=== PATIENT | female | born 1960 | race Caucasian/White ===

== ENCOUNTER 2018-10-13 07:19 | Emergency (ER) | payer BC, SELFPAY ==
[2018-10-13] MEDS ORDERED: KETOROLAC 30 MG/ML INJ ONE (08:12)
[2018-10-13] MEDS ORDERED: ACETAMINOPHEN 500 MG TAB ONE (09:05)
--- NOTE | 2018-10-13 09:07 | RAD REPORT ---
EXAM DESCRIPTION: RAD - Shoulder Right 2 View - 10/13/2018 8:54 am CLINICAL HISTORY: PAIN COMPARISON: No comparisons FINDINGS: Degenerative changes are present involving the AC joint with small osteophytes. Calcificat ion is seen the distal supraspinatus tendon compatible with calcific tendinitis. No fracture or dislo cation. IMPRESSION: Calcific tendinitis.
--- NOTE | 2018-10-13 09:17 | ER ---
Nurse's Notes [facility] Name: Varsha Mayberry Age: 57 yrs Sex: Female : 1960 Arrival Date: 10/13/2018 Time: 07:20 Bed 19 Private MD: Diagnosis: Calcific tendinitis of right shoulder Presentation: 10/13 07:25 Presenting complaint: Patient states: c/o right shoulder pain radiating down to right aa5 elbow. Pt denies know injury. Report pain began on Friday. 07:25 Transition of care: patient was not received from another setting of care. Onset of aa5 symptoms was September 2018. Risk Assessment: Do you want to hurt yourself or someone else? Patient reports no desire to harm self or others. Initial Sepsis Screen: Does the patient meet any 2 criteria? No. Patient's initial sepsis screen is negative. Does the patient have a suspected source of infection? No. Patient's initial sepsis screen is negative. Care prior to arrival: None. 07:25 Method Of Arrival: Ambulatory aa5 07:25 Acuity: RUDDY 3 aa5 Triage Assessment: 07:40 General: Appears in no apparent distress. Behavior is calm, cooperative, appropriate hj for age. Pain: Complains of pain in arm, shoulder. Historical: - Allergies: 07:25 No Known Allergies; aa5 - PMHx: 07:25 None; aa5 - PSHx: 07:25 None; aa5 - Immunization history:: Flu vaccine is not up to date. - Social history:: Smoking status: Patient/guardian denies using tobacco. - Ebola Screening: : No symptoms or risks identified at this time. Screenin:40 Abuse screen: Denies threats or abuse. Denies injuries from another. Nutritional hj screening: No deficits noted. Tuberculosis screening: No symptoms or risk factors identified. Fall Risk None identified. Assessment: 07:41 General: Appears in no apparent distress. uncomfortable, Behavior is calm, cooperative, hj appropriate for age. Pain: Complains of pain in R shoulder, R arm. Neuro: Level of Consciousness is awake, alert, obeys commands, Oriented to person, place, time, situation, Appropriate for age. Cardiovascular: Capillary refill < 3 seconds Patient's skin is warm and dry. Respiratory: Airway is patent Respiratory effort is even, unlabored, Respiratory pattern is regular, symmetrical. GI: No signs and/or symptoms were reported involving the gastrointestinal system. : No signs and/or symptoms were reported regarding the genitourinary system. EENT: No signs and/or symptoms were reported regarding the EENT system. Derm: No signs and/or symptoms reported regarding the dermatologic system. Musculoskeletal: Reports pain in R shoulder, R arm. 09:02 Reassessment: Patient appears in no apparent distress at this time. Patient and/or hb family updated on plan of care and expected duration. Pain level reassessed. Patient is alert, oriented x 3, equal unlabored respirations, skin warm/dry/pink. Vital Signs: 07:27 BP 126 / 70; Pulse 69; Resp 16 S; Temp 98.0(TE); Pulse Ox 95% on R/A; Weight 77.11 kg aa5 (R); Height 5 ft. 10 in. (177.80 cm) (R); Pain 9/10; 09:00 BP 116 / 68; Pulse 66; Resp 16; Pulse Ox 100% on R/A; hb 07:27 Body Mass Index 24.39 (77.11 kg, 177.80 cm) aa5 ED Course: 07:20 Patient arrived in ED. as 07:25 José Gonzalez, EDIN is Primary Nurse. hj 07:25 Arm band placed on Patient placed in an exam room, on a stretcher. aa5 07:31 Triage completed. aa5 07:36 Shaniqua Aguilar F[facility]C is [facility]. snw 07:36 Antonio Frazier MD is Attending Physician. snw 07:41 Patient has correct armband on for positive identification. Bed in low position. Call hj light in reach. Side rails up X 1. 08:54 Shoulder Right (2 View) XRAY In Process Unspecified. EDMS 09:17 Contreras Louie MD is Referral Physician. snw 09:30 No provider procedures requiring assistance completed. Patient did not have IV access hb during this emergency room visit. Administered Medications: 07:59 Drug: TORadol 60 mg Route: IM; Site: left deltoid; hj 08:56 Follow up: Response: No adverse reaction; Pain is decreased hj Outcome: 09:17 Discharge ordered by . snw 09:30 Discharged to home ambulatory. hb 09:30 Condition: stable 09:30 Discharge instructions given to patient, Instructed on discharge instructions, follow up and referral plans. medication usage, Demonstrated understanding of instructions, follow-up care, medications, Prescriptions given X 1. 09:31 Patient left the ED. hb Signatures: Dispatcher [employer] EDMS Shaniqua Aguilar, AURY-C [employer] DISTRICT SUPERVISOR-Kristalw Raya Dominguez Audri, RN RN aa5 José Gonzalez RN RN Nazia Miller RN RN hb
--- NOTE | 2018-10-13 09:18 | EDPHYS ---
Physician Documentation [facility] Name: Varsha Mayberry Age: 57 yrs Sex: Female : 1960 Arrival Date: 10/13/2018 Time: 07:20 Bed 19 Private MD: ED Physician Antonio Frazier HPI: 10/13 08:16 This 57 yrs old Female presents to ER via Ambulatory with complaints of Arm snw Pain, Shoulder Pain. 08:16 The patient or guardian complains of decreased range of motion, pain, that is acute. snw The complaints affect the posterior aspect of right shoulder. Context: The problem was sustained at an unknown location, resulted from repetitive motion work, lifting grandchild. Onset: The symptoms/episode began/occurred suddenly, 3 day(s) ago, and became persistent. Associated signs and symptoms: Pertinent positives: decreased range of motion, pain, of the right shoulder. Severity of symptoms: At their worst the symptoms were moderate, severe, 3 day(s) ago. The patient has experienced a previous episode, many years ago. The patient has not recently seen a physician. Historical: - Allergies: 07:25 No Known Allergies; aa5 - PMHx: 07:25 None; aa5 - PSHx: 07:25 None; aa5 - Immunization history:: Flu vaccine is not up to date. - Social history:: Smoking status: Patient/guardian denies using tobacco. - Ebola Screening: : No symptoms or risks identified at this time. ROS: 08:16 Constitutional: Negative for fever, chills, and weight loss, Eyes: Negative for injury, snw pain, redness, and discharge, ENT: Negative for injury, pain, and discharge, Neck: Negative for injury, pain, and swelling, Cardiovascular: Negative for chest pain, palpitations, and edema, Respiratory: Negative for shortness of breath, cough, wheezing, and pleuritic chest pain, Abdomen/GI: Negative for abdominal pain, nausea, vomiting, diarrhea, and constipation, Back: Negative for injury and pain, : Negative for injury, bleeding, discharge, and swelling, Skin: Negative for injury, rash, and discoloration, Neuro: Negative for headache, weakness, numbness, tingling, and seizure, Psych: Negative for depression, anxiety, suicide ideation, homicidal ideation, and hallucinations. 08:16 MS/extremity: Positive for injury or acute deformity, decreased range of motion, pain, tenderness, of the right shoulder. Exam: 08:07 Constitutional: This is a well developed, well nourished patient who is awake, alert, snw and in no acute distress. Head/Face: Normocephalic, atraumatic. Eyes: Pupils equal round and reactive to light, extra-ocular motions intact. Lids and lashes normal. Conjunctiva and sclera are non-icteric and not injected. Cornea within normal limits. Periorbital areas with no swelling, redness, or edema. ENT: Nares patent. No nasal discharge, no septal abnormalities noted. Tympanic membranes are normal and external auditory canals are clear. Oropharynx with no redness, swelling, or masses, exudates, or evidence of obstruction, uvula midline. Mucous membranes moist. Neck: Trachea midline, no thyromegaly or masses palpated, and no cervical lymphadenopathy. Supple, full range of motion without nuchal rigidity, or vertebral point tenderness. No Meningismus. Chest/axilla: Normal chest wall appearance and motion. Nontender with no deformity. No lesions are appreciated. Cardiovascular: Regular rate and rhythm with a normal S1 and S2. No gallops, murmurs, or rubs. Normal PMI, no JVD. No pulse deficits. Respiratory: Lungs have equal breath sounds bilaterally, clear to auscultation and percussion. No rales, rhonchi or wheezes noted. No increased work of breathing, no retractions or nasal flaring. Abdomen/GI: Soft, non-tender, with normal bowel sounds. No distension or tympany. No guarding or rebound. No evidence of tenderness throughout. Back: No spinal tenderness. No costovertebral tenderness. Full range of motion. Skin: Warm, dry with normal turgor. Normal color with no rashes, no lesions, and no evidence of cellulitis. Neuro: Awake and alert, GCS 15, oriented to person, place, time, and situation. Cranial nerves II-XII grossly intact. Motor strength 5/5 in all extremities. Sensory grossly intact. Cerebellar exam normal. Normal gait. Psych: Awake, alert, with orientation to person, place and time. Behavior, mood, and affect are within normal limits. 08:07 Musculoskeletal/extremity: Extremities: grossly normal except: noted in the right arm: decreased ROM, tenderness, ROM: limited active range of motion due to pain, in the right arm, Circulation is intact in all extremities. spasm like pain Joints: the right shoulder displays limited range of motion, pain at rest, painful range of motion. Vital Signs: 07:27 BP 126 / 70; Pulse 69; Resp 16 S; Temp 98.0(TE); Pulse Ox 95% on R/A; Weight 77.11 kg aa5 (R); Height 5 ft. 10 in. (177.80 cm) (R); Pain 9/10; 09:00 BP 116 / 68; Pulse 66; Resp 16; Pulse Ox 100% on R/A; hb 07:27 Body Mass Index 24.39 (77.11 kg, 177.80 cm) aa5 MDM: 07:36 Patient medically screened. snw 09:18 Data reviewed: vital signs, nurses notes. Data interpreted: Pulse oximetry: on room air snw is 95 %. Interpretation: normal. Counseling: I had a detailed discussion with the patient and/or guardian regarding: the historical points, exam findings, and any diagnostic results supporting the discharge/admit diagnosis, radiology results, the need for outpatient follow up, to return to the emergency department if symptoms worsen or persist or if there are any questions or concerns that arise at home. Special discussion: Based on the history and exam findings, there is no indication for further emergent testing or inpatient evaluation. I discussed with the patient/guardian the need to see the orthopedic surgeon for further evaluation of the symptoms. I discussed with the patient/guardian the need to see the primary care provider for further evaluation of the symptoms. 10/13 07:56 Order name: Shoulder Right (2 View) XRAY; Complete Time: 09:09 snw 10/13 07:56 Order name: Sling; Complete Time: 08:56 snw Administered Medications: 07:59 Drug: TORadol 60 mg Route: IM; Site: left deltoid; 08:56 Follow up: Response: No adverse reaction; Pain is decreased hj Disposition: 18:12 Co-signature as Attending Physician, Antonio Frazier MD I agree with the assessment and wa plan of care. Disposition: 10/13/18 09:17 Discharged to Home. Impression: Calcific tendinitis of right shoulder. - Condition is Stable. - Discharge Instructions: Rotator Cuff Tendinitis, Calcific Tendinitis, Heat Therapy. - Prescriptions for Diclofenac Sodium 75 mg Oral Tablet Sustained Release - take 1 tablet by ORAL route 2 times per day; 30 tablet. - Work release form, Medication Reconciliation Form, Thank You Letter, Antibiotic Education, Prescription Opioid Use form. - Follow up: Private Physician; When: 2 - 3 days; Reason: Recheck today's complaints, Continuance of care, Re-evaluation by your physician. Follow up: Emergency Department; When: As needed; Reason: Worsening of condition. Follow up: Contreras Louie MD; When: 1 week; Reason: Recheck today's complaints, Continuance of care. Signatures: Dispatcher [employer] EDMS Shaniqua Aguilar, AURY-C MERCHANDISE WORKER-Csnw Suzanne Collins, RN RN aa5 José Gonzalez RN RN Nazia Miller RN RN FreddieAntonio MD MD pa Corrections: (The following items were deleted from the chart) 09:31 09:17 10/13/2018 09:17 Discharged to Home. Impression: Calcific tendinitis of right hb shoulder. Condition is Stable. Forms are Medication Reconciliation Form, Thank You Letter, Antibiotic Education, Prescription Opioid Use. Follow up: Private Physician; When: 2 - 3 days; Reason: Recheck today's complaints, Continuance of care, Re-evaluation by your physician. Follow up: Emergency Department; When: As needed; Reason: Worsening of condition. Follow up: Contreras Louie; When: 1 week; Reason: Recheck today's complaints, Continuance of care. snw
[2018-10-13 09:36] VITALS: TEMP 98
[2018-10-13 09:37] VITALS: BP 116/68; O2SAT 100
== END 2018-10-13 09:31 | disposition home or self-care (01) ==
LOC: ER 07:19
DX: M75.31 Calcific tendinitis of right shoulder (principal)
CPT/HCPCS: 96372; 99283